=== PATIENT | male | born 1960 | race Caucasian/White ===

== ENCOUNTER 2018-08-05 09:48 | Day surgery (SDC) | payer BC, OTHER ==
[~2018-08-05] VITALS: Ht 170.2 cm; Wt 87.7 kg
[2018-08-05 10:46] VITALS: Ht 170.2 cm; Wt 87.7 kg
[2018-08-05] MEDS ORDERED: OMEP20CA16 PO (10:51)
[2018-08-05 11:01] VITALS: BP 119/63; PULSE 47; RESP 16
[2018-08-05] MEDS ORDERED: MIDAZOLAM 1 MG/ML 2 ML INJ ONE ×2 (12:07)
[2018-08-05] MEDS ORDERED: FENTAnyl 50 MCG/ML VIAL ONE (12:08)
[2018-08-05 12:30] VITALS: BP 119/78; RESP 14
== END 2018-08-05 14:11 | disposition home or self-care (01) ==
LOC: GIL 09:48
PROVIDERS: ATTEND Internal Medicine Gastroenterology
DX: Z12.11 Encounter for screening for malignant neoplasm of colon (principal); K29.50 Unspecified chronic gastritis without bleeding; K64.8 Other hemorrhoids
CPT/HCPCS: 43239; 45378; 88305; 88312; J2250; J3010; Z7610